=== PATIENT | female | born 1985 | race Two or more races ===

== ENCOUNTER 2021-04-25 11:21 | Inpatient (IN) | payer MEDICAID, OTHER ==
[~2021-04-25] VITALS: Ht 162.6 cm; Wt 86.7 kg
[2021-04-25] MEDS ORDERED: methylPREDNISolone SOD SUCC 125 MG/2 ML VL IV ONE (11:30)
[2021-04-25] MEDS ORDERED: ASCORBIC ACID 500 MG TAB PO ONE (11:30)
[2021-04-25] MEDS ORDERED: CHOLECALCIFEROL (VITD3) 2,000 UNIT CAP/TAB PO ONE (11:30)
[2021-04-25] MEDS ORDERED: ZINC SULFATE 220mg CAP or TAB PO ONE (11:30)
[2021-04-25 12:55] LABS: Basophils # (auto) 0 10 ^3/uL (0-0.2); Basophils % (auto) 0.2 % (0.0-2.0); Eosinophils # (auto) 0 10 ^3/uL (0-0.8); Eosinophils % (auto) 0.3 % (0.0-7.0); Hematocrit 38.4 % (36.0-46.0); Hemoglobin 13.4 g/dL (12.2-16.2); Lymphocytes # (auto) 0.6 10 ^3/uL (0.4-5.4); Lymphocytes % (auto) 11.7 % (10.0-50.0); Mean Corpuscular Hemoglobin 32.4 pg (28.0-32.0); Mean Corpuscular Volume 92.7 fL (80.0-100.0); Monocytes # (auto) 0.4 10 ^3/uL (0-1.3); Monocytes % (auto) 8.1 % (0.0-12.0); Neutrophils # (auto) 4.2 10 ^3/uL (1.6-8.6); Neutrophils % (auto) 79.7 % (37.0-80.0); Nucleated Red Blood Cells % 0.1 %; Red Blood Cells 4.15 10^6/uL (4.0-5.20); Red Cell Distribution Width 12.7 % (11.8-14.3); White Blood Cell 5.3 10^3/uL (4.4-10.8)
[2021-04-25 13:10] LABS: Anion Gap 7 (5-15); Blood Urea Nitrogen 9 mg/dL (7-18); Calcium 8.7 mg/dL (8.5-10.1); Carbon Dioxide 26 mmol/L (21-32); Chloride 101 mmol/L (98-107); Glucose 99 mg/dL (74-106); Potassium 3.4 mmol/L (3.5-5.1); Sodium 134 mmol/L (136-145)
[2021-04-25 13:18] LABS: Alanine Aminotransferase 145 U/L (13-56); Alkaline Phosphatase 52 U/L (45-117); Aspartate Aminotransferase 85 U/L (15-37); GFR African American 145 mL/min; GFR Non-African American 120 mL/min; Total Protein 8.2 g/dL (6.4-8.2)
[2021-04-25 13:22] LABS: CRP High Sensitivity > 19.0 mg/dL (< 0.3)
[2021-04-25 13:23] LABS: Albumin 2.6 g/dL (3.4-5.0)
[2021-04-25] MEDS ORDERED: ALBUTEROL SULF HFA 90MCG INH 200DOSE IN PRN ×2 (14:00)
[2021-04-25] MEDS ORDERED: MORPHINE SULF INJ 2 MG/ML SYRINGE 1ML IV PRN (14:00)
[2021-04-25] MEDS ORDERED: ACETAMINOPHEN 500 MG TAB PO PRN (14:00)
[2021-04-25] MEDS ORDERED: NITROGLYCERIN 0.4 MG SL TAB SL PRN (14:00)
[2021-04-25 15:15] VITALS: BP 114/69
[2021-04-25 19:47] LABS: Urine Bacteria FEW /hpf (None Seen); Urine Blood 3+ /uL (Negative); Urine Mucus FEW (None Seen); Urine Specific Gravity 1.026 (1.001-1.035); Urine WBC 106 /hpf (0 - 5)
[2021-04-25 20:40] VITALS: BP 114/69
[2021-04-25] MEDS ORDERED: ENOXAPARIN SOD 40 MG/0.4 ML SYRINGE SC SCH (22:00)
[2021-04-25 22:14] VITALS: BP 103/70
[2021-04-25] MEDS: BUDESONIDE (INHALATION) 180 MCG IH IN SCH (23:15)
[2021-04-25] MEDS: ALBUTEROL SULF HFA 90MCG INH 200DOSE IN PRN (23:17)
[2021-04-25] MEDS: ENOXAPARIN SOD 40 MG/0.4 ML SYRINGE SC SCH (23:20)
[2021-04-26] VITALS (9 sets, daily range): BP systolic 100–111; BP diastolic 64–77
[2021-04-26] MEDS: ALBUTEROL SULF HFA 90MCG INH 200DOSE IN PRN ×2 (06:12→20:21)
[2021-04-26] MEDS: BUDESONIDE (INHALATION) 180 MCG IH IN SCH ×2 (06:12→20:21)
[2021-04-26] MEDS ORDERED: IVERMECTIN 3 MG TAB PO ONE ×2 (06:42→07:00)
[2021-04-26] MEDS: ZINC SULFATE 220mg CAP or TAB PO SCH (10:43)
[2021-04-26] MEDS: ENOXAPARIN SOD 40 MG/0.4 ML SYRINGE SC SCH ×2 (10:43→22:31)
[2021-04-26] MEDS: CHOLECALCIFEROL (VITD3) 2,000 UNIT CAP/TAB PO SCH (10:43)
[2021-04-26] MEDS: AZITHROMYCIN 500MG/ 250ML 250 ML IV SCH (10:43)
[2021-04-26] MEDS: DexAMETHasone SOD PHOS 10MG/1ML VIAL INJ IV SCH (10:43)
[2021-04-26] MEDS ORDERED: REMDESIVIR PER PHARMACY 0 ML IV SCH (11:15)
[2021-04-26] MEDS ORDERED: POTASSIUM CHL 20 Meq TABLET PO ONE (13:15)
[2021-04-26] MEDS ORDERED: cefTRIAXone 1GM/50ML D5W 50 ML IV ONE (13:15)
[2021-04-26] MEDS ORDERED: FUROSEMIDE 20 MG/2 ML VIAL IV ONE (13:15)
[2021-04-26] MEDS ORDERED: REMDESIVIR 200 MG in NS 210ml LOADING DOSE ADULT IV ONE (15:00)
[2021-04-26] MEDS ORDERED: TOCILIZUMAB 400 MG in SODIUM CHL 0.9% 80 ML IV SCH (22:00)
[2021-04-27 05:20] VITALS: BP 105/70
[2021-04-27] MEDS: BUDESONIDE (INHALATION) 180 MCG IH IN SCH ×2 (08:15→22:00)
[2021-04-27] MEDS: ALBUTEROL SULF HFA 90MCG INH 200DOSE IN PRN ×2 (08:15→22:38)
[2021-04-27 09:00] VITALS: BP 103/62
[2021-04-27] MEDS: DexAMETHasone SOD PHOS 10MG/1ML VIAL INJ IV SCH (09:30)
[2021-04-27] MEDS: ZINC SULFATE 220mg CAP or TAB PO SCH (09:30)
[2021-04-27] MEDS: AZITHROMYCIN 500MG/ 250ML 250 ML IV SCH (09:30)
[2021-04-27] MEDS: cefTRIAXone 1GM/50ML D5W 50 ML IV SCH (09:30)
[2021-04-27] MEDS: CHOLECALCIFEROL (VITD3) 2,000 UNIT CAP/TAB PO SCH (09:31)
[2021-04-27] MEDS: POTASSIUM CHL 20 Meq TABLET PO SCH (09:31)
[2021-04-27] MEDS: ENOXAPARIN SOD 40 MG/0.4 ML SYRINGE SC SCH ×2 (09:31→22:08)
[2021-04-27] MEDS: FUROSEMIDE 20 MG/2 ML VIAL IV SCH (10:25)
[2021-04-27 13:00] VITALS: BP 101/66
[2021-04-27] MEDS: REMDESIVIR 100mg 100 MG in SODIUM CHL 0.9% 230 ML IV SCH (15:38)
[2021-04-27 17:00] VITALS: BP 110/73
[2021-04-27 20:00] VITALS: BP 105/68
[2021-04-27 22:00] VITALS: BP 105/68
[2021-04-28 05:00] VITALS: BP 110/72
[2021-04-28 06:44] LABS: Albumin 2.2 g/dL (3.4-5.0); Calcium 8.3 mg/dL (8.5-10.1); Potassium 4.2 mmol/L (3.5-5.1)
[2021-04-28 06:47] LABS: BUN/Creatinine Ratio 31.5; Bilirubin, Total 0.3 mg/dL (0.2-1.0); Total Protein 6.6 g/dL (6.4-8.2)
[2021-04-28] MEDS: BUDESONIDE (INHALATION) 180 MCG IH IN SCH ×2 (07:12→23:01)
[2021-04-28] MEDS: ALBUTEROL SULF HFA 90MCG INH 200DOSE IN PRN ×2 (07:12→23:01)
[2021-04-28 09:00] VITALS: BP 98/64
[2021-04-28] MEDS: cefTRIAXone 1GM/50ML D5W 50 ML IV SCH (10:23)
[2021-04-28] MEDS: DexAMETHasone SOD PHOS 10MG/1ML VIAL INJ IV SCH (10:23)
[2021-04-28] MEDS: FUROSEMIDE 20 MG/2 ML VIAL IV SCH (10:24)
[2021-04-28] MEDS: AZITHROMYCIN 500MG/ 250ML 250 ML IV SCH (10:25)
[2021-04-28] MEDS: CHOLECALCIFEROL (VITD3) 2,000 UNIT CAP/TAB PO SCH (10:25)
[2021-04-28] MEDS: ZINC SULFATE 220mg CAP or TAB PO SCH (10:25)
[2021-04-28] MEDS: ENOXAPARIN SOD 40 MG/0.4 ML SYRINGE SC SCH ×2 (10:25→21:59)
[2021-04-28] MEDS: POTASSIUM CHL 20 Meq TABLET PO SCH (10:25)
[2021-04-28 12:22] VITALS: BP 95/53
[2021-04-28 16:59] VITALS: BP 87/54
[2021-04-28] MEDS: REMDESIVIR 100mg 100 MG in SODIUM CHL 0.9% 230 ML IV SCH (18:50)
[2021-04-28 22:07] VITALS: BP 104/60
[2021-04-29] VITALS (8 sets, daily range): BP systolic 86–102; BP diastolic 53–69
[2021-04-29 06:58] LABS: Potassium 4.6 mmol/L (3.5-5.1)
[2021-04-29 07:13] LABS: Albumin 2.3 g/dL (3.4-5.0); BUN/Creatinine Ratio 31.5; Bilirubin, Total 0.4 mg/dL (0.2-1.0); Calcium 8.4 mg/dL (8.5-10.1); Total Protein 6.7 g/dL (6.4-8.2)
[2021-04-29] MEDS: ALBUTEROL SULF HFA 90MCG INH 200DOSE IN PRN ×2 (07:57→20:56)
[2021-04-29] MEDS: BUDESONIDE (INHALATION) 180 MCG IH IN SCH ×2 (07:58→19:41)
[2021-04-29] MEDS: cefTRIAXone 1GM/50ML D5W 50 ML IV SCH (08:36)
[2021-04-29] MEDS: AZITHROMYCIN 500MG/ 250ML 250 ML IV SCH (09:42)
[2021-04-29] MEDS: DexAMETHasone SOD PHOS 10MG/1ML VIAL INJ IV SCH (09:43)
[2021-04-29] MEDS: ZINC SULFATE 220mg CAP or TAB PO SCH (09:43)
[2021-04-29] MEDS: CHOLECALCIFEROL (VITD3) 2,000 UNIT CAP/TAB PO SCH (09:43)
[2021-04-29] MEDS: ENOXAPARIN SOD 40 MG/0.4 ML SYRINGE SC SCH ×2 (09:44→21:09)
[2021-04-29] MEDS: FUROSEMIDE 20 MG/2 ML VIAL IV SCH (10:00)
[2021-04-29] MEDS: POTASSIUM CHL 20 Meq TABLET PO SCH (10:00)
[2021-04-29] MEDS: REMDESIVIR 100mg 100 MG in SODIUM CHL 0.9% 230 ML IV SCH (14:18)
[2021-04-30 05:11] VITALS: BP 96/58
[2021-04-30 06:38] LABS: Albumin 2.4 g/dL (3.4-5.0); BUN/Creatinine Ratio 28.6; Calcium 8.2 mg/dL (8.5-10.1); Potassium 4.5 mmol/L (3.5-5.1)
[2021-04-30 06:44] LABS: Bilirubin, Total 0.4 mg/dL (0.2-1.0); Total Protein 6.4 g/dL (6.4-8.2)
[2021-04-30] MEDS: ALBUTEROL SULF HFA 90MCG INH 200DOSE IN PRN (07:36)
[2021-04-30] MEDS: BUDESONIDE (INHALATION) 180 MCG IH IN SCH (07:36)
[2021-04-30 09:00] VITALS: BP 94/62
[2021-04-30] MEDS: FUROSEMIDE 20 MG/2 ML VIAL IV SCH (09:42)
[2021-04-30] MEDS: DexAMETHasone SOD PHOS 10MG/1ML VIAL INJ IV SCH (09:42)
[2021-04-30] MEDS: cefTRIAXone 1GM/50ML D5W 50 ML IV SCH (09:42)
[2021-04-30] MEDS: ZINC SULFATE 220mg CAP or TAB PO SCH (09:43)
[2021-04-30] MEDS: ENOXAPARIN SOD 40 MG/0.4 ML SYRINGE SC SCH (09:43)
[2021-04-30] MEDS: POTASSIUM CHL 20 Meq TABLET PO SCH (09:43)
[2021-04-30] MEDS: CHOLECALCIFEROL (VITD3) 2,000 UNIT CAP/TAB PO SCH (09:43)
[2021-04-30] MEDS: AZITHROMYCIN 500MG/ 250ML 250 ML IV SCH (10:44)
[2021-04-30 13:00] VITALS: BP 94/61
[2021-04-30] MEDS ORDERED: CHOL1CAP47 PO (13:13)
[2021-04-30] MEDS ORDERED: ASPI-231 PO (13:13)
[2021-04-30] MEDS ORDERED: ALBUAER3 IN (13:13)
[2021-04-30] MEDS ORDERED: FURO20TA3 PO (13:13)
[2021-04-30] MEDS ORDERED: ASCO500T11 PO (13:13)
[2021-04-30] MEDS ORDERED: DEX4T PO (13:13)
[2021-04-30] MEDS ORDERED: ZINC220T6 PO (13:21)
[2021-04-30 14:25] VITALS: BP 129/84
[2021-04-30] MEDS: REMDESIVIR 100mg 100 MG in SODIUM CHL 0.9% 230 ML IV SCH (15:13)
== END 2021-04-30 17:10 | disposition home or self-care (01) | DRG 137 ==
LOC: ER 11:21 → TELE-EAST 13:54 → ER 15:10
PROVIDERS: ADMIT Nurse Practitioner Acute Care; ATTEND Internal Medicine
PROC: XW13325 Transfusion of Convalescent Plasma (Nonautologous) into Peripheral Vein, Percutaneous Approach, New Technology Group 5 (ICD-10-PCS; principal; 2021-04-26)
PROC: XW033E5 Introduction of Remdesivir Anti-infective into Peripheral Vein, Percutaneous Approach, New Technology Group 5 (ICD-10-PCS; 2021-04-26)
DX: U07.1 COVID-19 (principal); J96.01 Acute respiratory failure with hypoxia; J12.82 Pneumonia due to coronavirus disease 2019; D89.839 Cytokine release syndrome, grade unspecified; E66.9 Obesity, unspecified; N39.0 Urinary tract infection, site not specified; Z68.32 Body mass index [BMI] 32.0-32.9, adult
CPT/HCPCS: 36415; 36600; 71045; 80053; 81001; 82728; 82805; 83605; 85025; 85379; 86141; 86850; 86900; 86901; 87040; 87086; 87426; 93005; 94640; 96374; G0378; J0696; J1100